=== PATIENT | female | born 1965 | race Caucasian/White ===

== ENCOUNTER 2023-10-16 08:26 | Day surgery (SDC) | payer OTHER ==
[~2023-10-16] VITALS: Ht 154.9 cm; Wt 71.7 kg
[2023-10-16] MEDS ORDERED: MIDAZOLAM 2 MG/2 ML VIAL ONE (09:28)
[2023-10-16] MEDS ORDERED: fentaNYL citrate 0.05 MG/ML VIAL ONE (09:28)
[2023-10-16] MEDS: MIDAZOLAM 2 MG/2 ML VIAL IVP ONE (09:38)
[2023-10-16] MEDS: fentaNYL citrate 0.05 MG/ML VIAL IVP ONE (09:39)
[2023-10-16] MEDS: LIDOCAINE 2% 100 MG/5 ML UJET TP ONE (09:55)
== END 2023-10-16 11:15 | disposition home or self-care (01) ==
LOC: MDS 08:26 → MMU 08:27 → MDS 11:15
PROVIDERS: ATTEND Internal Medicine Gastroenterology
DX: Z12.11 Encounter for screening for malignant neoplasm of colon (principal); K21.00 Gastro-esophageal reflux disease with esophagitis, without bleeding; K44.9 Diaphragmatic hernia without obstruction or gangrene; R05.3 Chronic cough; E78.00 Pure hypercholesterolemia, unspecified; Z90.710 Acquired absence of both cervix and uterus; Z98.891 History of uterine scar from previous surgery; Z88.5 Allergy status to narcotic agent; Z88.2 Allergy status to sulfonamides; Z79.899 Other long term (current) drug therapy; Z98.890 Other specified postprocedural states
CPT/HCPCS: 43239; 45378; 88305; 88312; 88313; 88342; J2250; J3010